=== PATIENT | male | born 1960 | race Two or more races ===

== ENCOUNTER 2021-09-05 05:50 | Day surgery (SDC) | payer OTHER ==
[~2021-09-05 05:50] MED LIST: CRESTOR20 MG PO; NORVASC5 MG PO; VASOTEC20 M1 PO; ZETIA10 MG PO; ZIPSOR25 MG PO
[2021-09-05] MEDS ORDERED: PERCOCET 5-3251 EACH PO (08:42)
== END 2021-09-05 14:35 | disposition home or self-care (01) ==
LOC: CIR.AMB 05:50
PROVIDERS: ATTEND Surgery
DX: K64.4 Residual hemorrhoidal skin tags (principal); K64.8 Other hemorrhoids; Z20.822 Contact with and (suspected) exposure to COVID-19